=== PATIENT | male | born 1995 | race Caucasian/White ===

== ENCOUNTER 2022-03-03 00:53 | Emergency (ER) | payer OTHER ==
[~2022-03-03] VITALS: Ht 170.2 cm; Wt 72.7 kg
[2022-03-03 00:59] VITALS: TEMP 97.1
[2022-03-03 01:44] VITALS: BP 124/78; PULSE 80
== END 2022-03-03 01:44 | disposition home or self-care (01) ==
LOC: COL.ER 00:53
DX: L50.9 Urticaria, unspecified (principal)
CPT/HCPCS: J1100